=== PATIENT | female | born 1975 | race Caucasian/White ===

== ENCOUNTER 2017-07-01 02:10 | Emergency (ER) | payer OTHER ==
[2017-07-01 02:15] VITALS: BP 157/107; PULSE 130; RESP 20; TEMP 97.5; O2SAT 99
[2017-07-01 02:29] VITALS: BP 157/95; PULSE 120; RESP 19; TEMP 98.3; O2SAT 99
[2017-07-01] MEDS ORDERED: SODIUM CHLOR 0.9% 1000 ML INJ 1,000 ML IV ONE (02:45)
[2017-07-01] MEDS ORDERED: RESP: ALBUTEROL 2.5 MG/IPRATROPIUM 0.5 MG NEB (SCH) INH ONE (02:45)
--- NOTE | 2017-07-01 02:48 | PD ---
HPI Chief Complaint: Cardiac Complaint Time Seen by Provider: 02:25 Travel History International Travel<30 days: No Contact w/Intl Traveler<30days: No Traveled to known affect area: No History of Present Illness HPI 42yo F with PMH of asthma and HTN presents to the ED with c/o sob at 1am that woke her up from sleep. Said she has been feeling sick and went to see her PMD 2 weeks ago. Said she probably had the flu and gave her tamiflu and prednisone. Said it was not better so she went to her PMD today and she was also given prednisone today. Pt has been using flovent but no albuterol at home. She also felt her heart rate going fast so needed to come. Had some tingling in her chest, left arm, bilateral toes. +Cough. Denies any fever, n/v , abdominal pain, focal weakness or numbness. Denies any OCP use, recent travel , recent surgery, hemoptysis, history of PE/DVT. PFSH Past Medical History Cardiovascular Problems: Yes High Cholesterol: Yes (intermit) Diabetes: No Kidney Stones: Yes ?: Not Past Surgical History Appendectomy: Yes Cholecystectomy: Yes Genitourinary Surgery: Yes (CYSTOSCOPY) Family History Family Myocardial Infarction: Yes Social History Alcohol Use: Yes (RARE) Tobacco Use: No Substance Use: No Allergies-Medications (Allergen,Severity, Reaction): Coded Allergies: No Known Allergies (Verified , 04/05/16) Reported Meds & Prescriptions Reported Meds & Active Scripts Active No Active Prescriptions or Reported Medications Review of Systems Except as stated in HPI: all other systems reviewed are Neg Physical Exam Narrative GENERAL: 42yo F in mild distress. SKIN: Focused skin assessment warm/dry. HEAD: Atraumatic. Normocephalic. EYES: Pupils equal and round. No scleral icterus. No injection or drainage. ENT: No nasal bleeding or discharge. Mucous membranes pink and moist. NECK: Trachea midline. No JVD. CARDIOVASCULAR: Tachycardic in ther 120s. RESPIRATORY: No accessory muscle use. Clear to auscultation. Breath sounds equal bilaterally. GASTROINTESTINAL: Abdomen soft, non-tender, nondistended. MUSCULOSKELETAL: No obvious deformities. No clubbing. No cyanosis. No edema. NEUROLOGICAL: Awake and alert. No obvious cranial nerve deficits. Motor grossly within normal limits. Normal speech. PSYCHIATRIC: Appropriate mood and affect; insight and judgment normal. Data Data Last Documented VS Vital Signs Date Time Temp Pulse Resp B/P (MAP) Pulse Ox O2 Delivery O2 Flow Rate FiO2 07/01/17 04:45 94 19 126/79 (95) 97 Room Air 07/01/17 02:29 98.3 Orders Orders Complete Blood Count With Diff (07/01/17 02:35) Basic Metabolic Panel (Bmp) (07/01/17 02:35) Act Partial Throm Time (Ptt) (07/01/17 02:35) Prothrombin Time / Inr (Pt) (07/01/17 02:35) Magnesium (Mg) (07/01/17 02:35) Troponin I (07/01/17 02:35) Chest, Single Ap (07/01/17 02:35) Albuterol-Ipratropium Neb (Duoneb Neb) (07/01/17 02:45) Sodium Chlor 0.9% 1000 Ml Inj (Ns 1000 M (07/01/17 02:45) Bhcg Screen Qualitative (07/01/17 02:35) Applications Scientist / Telemetry [id number] (07/01/17 02:39) Influenzae A/B Antigen (07/01/17 02:52) Guaifenesin Liq (Robitussin Liq) (07/01/17 03:00) Ed Urine Pregnancytest Poc (07/01/17 03:05) Ct Pulmonary Angiogram (07/01/17 ) Lorazepam Inj (Ativan Inj) (07/01/17 03:30) Thyroid Stimulating Hormone (07/01/17 03:29) Iohexol 350 Inj (Omnipaque 350 Inj) (07/01/17 03:32) Ed Discharge Order (07/01/17 04:47) Labs Laboratory Tests Test 07/01/17 02:39 White Blood Count 9.3 TH/MM3 Red Blood Count 4.88 MIL/MM3 Hemoglobin 14.7 GM/DL Hematocrit 40.6 % Mean Corpuscular Volume 83.2 FL Mean Corpuscular Hemoglobin 30.2 PG Mean Corpuscular Hemoglobin Concent 36.3 % Red Cell Distribution Width 12.9 % Platelet Count 289 TH/MM3 Mean Platelet Volume 9.0 FL Neutrophils (%) (Auto) 85.6 % Lymphocytes (%) (Auto) 11.7 % Monocytes (%) (Auto) 2.0 % Eosinophils (%) (Auto) 0.2 % Basophils (%) (Auto) 0.5 % Neutrophils # (Auto) 8.0 TH/MM3 Lymphocytes # (Auto) 1.1 TH/MM3 Monocytes # (Auto) 0.2 TH/MM3 Eosinophils # (Auto) 0.0 TH/MM3 Basophils # (Auto) 0.1 TH/MM3 CBC Comment AUTO DIFF Differential Total Cells Counted 100 Neutrophils % (Manual) 76 % Band Neutrophils % 6 % Lymphocytes % 12 % Monocytes % 4 % Eosinophils % 1 % Neutrophils # (Manual) 7.7 TH/MM3 Metamyelocytes 1 % Differential Comment FINAL DIFF MANUAL Atypical Lymphocytes % Toxic Vacuolation PRESENT Platelet Estimate NORMAL Platelet Morphology Comment NORMAL Red Cell Morphology Comment NORMAL Prothrombin Time 9.8 SEC Prothromb Time International Ratio 1.0 RATIO Activated Partial Thromboplast Time 28.7 SEC Blood Urea Nitrogen 12 MG/DL Creatinine 0.73 MG/DL Random Glucose 160 MG/DL Calcium Level 9.3 MG/DL Magnesium Level 2.1 MG/DL Sodium Level 137 MEQ/L Potassium Level 3.9 MEQ/L Chloride Level 106 MEQ/L Carbon Dioxide Level 21.8 MEQ/L Anion Gap 9 MEQ/L Estimat Glomerular Filtration Rate 87 ML/MIN Troponin I LESS THAN 0.02 NG/ML Thyroid Stimulating Hormone 3rd Gen 1.830 uIU/ML Beta HCG, Qualitative LESS THAN 1 MIU/ML [facility] Medical Decision Making Medical Screen Exam Complete: Yes Emergency Medical Condition: Yes Interpretation(s) EKG: NSR 129bpm. Normal axis. No ST segment elevation or depression. TWI III. Differential Diagnosis Pneumonia vs. URI vs. PE vs. ACS vs. anxiety Narrative Course 42yo F here with c/o sob that woke her up at 1am today. She also felt her heart rate go fast and had this tingling/burning sensation in her body. Said this sensation is moving to different parts of the body. Pt is not wheezing on exam. She has been taking prednisone and took it today. Labs reviewed, no leukocytosis. H/H normal. Troponin negative. BMP unremarkable. negative. TSH normal. Pt given 1 duoneb since she has asthma and did not get better. CXR negative. Robitussin ordered but pt refused it because it is too thick. Since pt is sob and tachycardic, will do CT angio to r/o PE. HR has improved to 104bpm and O2 sat is 98% on RA. Pt appears anxious, will give 1 mg of ativan. Pt refused ativan since she is driving. CT angio showed no PE. Normal examination. Pt's heart rate is now 94bpm. BP is now 126/79. Pt said she no longer feels sob. The burning sensation is traveling however, to the right side of her body now. Offered chest pain center but pt refused since she has 2 young children with her. 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 Return precautions given. Diagnosis Primary Impression: Atypical chest pain Patient Instructions: General Instructions Departure Forms: Tests/Procedures Additional Instructions: Please follow up with your primary care physician for cardiology referral as needed. Return to the ED if symptoms worsen. Med/Other Pt SpecificInfo: No Change to Meds Scripts No Active Prescriptions or Reported Meds Disposition: 01 DISCHARGE HOME Condition: Stable Yue Marks DO Jul 01, 2017 02:48
[2017-07-01 02:55] LABS: BASOPHIL # 0.1 TH/MM3 (0-0.2); BASOPHIL % 0.5 % (0.0-2.0); EOSINOPHIL % 0.2 % (0.0-4.0); HEMATOCRIT 40.6 % (35.0-46.0); HEMOGLOBIN 14.7 GM/DL (11.6-15.3); LYMPH % 11.7 % (9.0-44.0); LYMPHOCYTE # 1.1 TH/MM3 (1.0-4.8); MEAN CELL VOLUME 83.2 FL (80.0-100.0); MEAN CORPUSCULAR HEMOGLOBIN 30.2 PG (27.0-34.0); MONOCYTE # 0.2 TH/MM3 (0-0.9); NEUT % 85.6 % (16.0-70.0); PLATELET COUNT 289 TH/MM3 (150-450); RED BLOOD COUNT 4.88 MIL/MM3 (4.00-5.30); RED CELL DISTRIBUTION WIDTH 12.9 % (11.6-17.2); WHITE BLOOD COUNT 9.3 TH/MM3 (4.0-11.0)
--- NOTE | 2017-07-01 02:57 | RADRPT ---
EXAM DATE/TIME: 07/01/2017 02:47 [facility] COMPARISON: CHEST SINGLE AP, April 05, 2016, 20:13. INDICATIONS : Short of breath. MEDICAL HISTORY : None. SURGICAL HISTORY : None. ENCOUNTER: Initial ACUITY: 1 day PAIN SCORE: 0/10 LOCATION: Bilateral chest FINDINGS: A single view of the chest demonstrates the lungs to be symmetrically aerated without evidence of mas s, infiltrate or effusion. The cardiomediastinal contours are unremarkable. Osseous structures are intact. CONCLUSION: Normal examination. Will Boyle MD on July 01, 2017 at 2:55 Board Certified Radiologist. This report was verified electronically.
[2017-07-01 02:58] LABS: MEAN CORPUSCULAR HGB CONC 36.3 % (32.0-36.0)
[2017-07-01] MEDS ORDERED: guaiFENesin SOLUTION 200 MG/10 ML CUP PO ONE (03:00)
[2017-07-01 03:06] LABS: PROTHROMBIN TIME - PATIENT 9.8 SEC (9.8-11.6)
[2017-07-01 03:19] VITALS: PULSE 104; RESP 18; O2SAT 98
[2017-07-01 03:19] LABS: BICARBONATE 21.8 MEQ/L (21.0-32.0); BLOOD UREA NITROGEN 12 MG/DL (7-18); CALCIUM 9.3 MG/DL (8.5-10.1); CHLORIDE 106 MEQ/L (98-107); CREATININE 0.73 MG/DL (0.50-1.00); GLOMERULAR FILTRATION RATE 87 ML/MIN (>89); GLUCOSE,RANDOM 160 MG/DL (74-106); MAGNESIUM 2.1 MG/DL (1.5-2.5); SODIUM (NA) 137 MEQ/L (136-145); TROPONIN I LESS THAN 0.02 NG/ML (0.02-0.05)
[2017-07-01 03:30] LABS: BANDS 6 % (0-6); LYMPHOCYTES 12 % (9-44); METAMYELOCYTES 1 % (0-1); MONOCYTES 4 % (0-8); NEUTROPHIL # MANUAL DIFF 7.7 TH/MM3 (1.8-7.7); POLYS (SEG NEUTROPHILS) 76 % (16-70); TOXIC VACUOLATION PRESENT (NONE SEEN)
[2017-07-01] MEDS ORDERED: LORazepam 2 MG/ML VIAL IV PUSH ONE (03:30)
[2017-07-01] MEDS ORDERED: IOHEXOL 350 MG/ML 10 ML VIAL (for RAD DIAG) IVCONTRAST ONE (03:32)
--- NOTE | 2017-07-01 03:48 | RADRPT ---
EXAM DATE/TIME: 07/01/2017 03:37 [facility] COMPARISON: CHEST SINGLE AP, July 01, 2017, 2:47. INDICATIONS : Shortness of breath. IV CONTRAST: 75 cc Omnipaque 350 (iohexol) IV RADIATION DOSE: 11.00 CTDIvol (mGy) MEDICAL HISTORY : Cardiovascular disease. Renal calculi. SURGICAL HISTORY : Cholecystectomy. Appendectomy. ENCOUNTER: Initial ACUITY: 1 day PAIN SCALE: 0/10 LOCATION: Bilateral chest TECHNIQUE: Volumetric scanning of the chest was performed using a pulmonary embolism protocol MIP images were re constructed. Using automated exposure control and adjustment of the mA and/or kV according to patien t size, radiation dose was kept as low as reasonably achievable to obtain optimal diagnostic quality images. DICOM format image data is available electronically for review and comparison. Follow-up recommendations for detected pulmonary nodules are based at a minimum on nodule size and pa tient risk factors according to Fleischner Society Guidelines. FINDINGS: PULMONARY ARTERIES: No filling defects are seen in the pulmonary arteries through the segmental level. LUNGS: There is no consolidation or pneumothorax . No concerning pulmonary nodule is visualized. PLEURAE: There is no pleural thickening or pleural effusion. MEDIASTINUM: There is good visualization of the great vessels of the middle mediastinum. No evidence of mediastin al or hilar adenopathy/mass. MUSCULOSKELETAL: Within normal limits for patient age. MISCELLANEOUS: The visualized upper abdominal organs demonstrate no acute abnormality. CONCLUSION: Normal examination. Will Boyle MD on July 01, 2017 at 3:45 Board Certified Radiologist. This report was verified electronically.
[2017-07-01 04:45] VITALS: BP 126/79; PULSE 94; RESP 19; O2SAT 97
--- NOTE | 2017-07-02 09:36 | EKG ---
Date Performed: 07/01/2017 Time Performed: 02:26:26 PTAGE: 42 years EKG: SINUS TACHYCARDIA ABNORMAL RHYTHM ECG INTERPRETATION BASED ON A DEFAULT AGE OF 40 YEARS PREVIOUS TRACING 04/06/16 Since prior tracing, sinus rate is faster. DOCTOR: Shaan Jones Interpretating Date/Time 07/02/2017 09:35:17
== END 2017-07-01 05:04 | disposition home or self-care (01) ==
LOC: NEPE 02:10
DX: R07.89 Other chest pain (principal); J45.909 Unspecified asthma, uncomplicated; I10 Essential (primary) hypertension; E78.00 Pure hypercholesterolemia, unspecified; R94.31 Abnormal electrocardiogram [ECG] [EKG]; Z87.442 Personal history of urinary calculi
CPT/HCPCS: 71045; 71275; 80048; 83735; 84443; 84484; 84703; 85007; 85027; 85610; 85730; 87804; 93005; 94664; 96360; 99285; J7030; Q9967